=== PATIENT | female | born 1945 | race Caucasian/White ===

== ENCOUNTER 2016-11-02 04:52 | Day surgery (SDC) | payer MEDICARE, BC ==
[~2016-11-02 04:52] MED LIST: ACET500CAP PO; CELEBREX2 PO; ESTROGEN CREAM T; FISH-EPA1000 MG PO; ULTRAM50 PO; VITE PO
== END 2016-11-02 09:34 | disposition home or self-care (01) ==
LOC: SDC 04:52
PROVIDERS: Orthopaedic Surgery
PROC: 3E0S33Z Introduction of Anti-inflammatory into Epidural Space, Percutaneous Approach (ICD-10-PCS; principal; 2016-11-02 07:15)
DX: M54.16 Radiculopathy, lumbar region (principal); M81.0 Age-related osteoporosis without current pathological fracture; Z96.641 Presence of right artificial hip joint; Z98.890 Other specified postprocedural states; Z90.710 Acquired absence of both cervix and uterus
CPT/HCPCS: J1040; J2250; J2405; J3010; Q9967